=== PATIENT | female | born 1960 | race Caucasian/White ===

== ENCOUNTER 2018-02-05 18:09 | Emergency (ER) | payer SELFPAY ==
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
[2018-02-05 18:39] LABS: HEMATOCRIT 38.2 % (35.0-47.0); MEAN CELL VOLUME 85.5 fl (81-97); MEAN CORPUSCULAR HEMOGLOBIN 26.8 pg (27-33); MEAN CORPUSCULAR HGB CONC 31.4 g/dl (32-36); MEAN PLATELET VOLUME 9.4 fl (7.4-10.4); PLATELET COUNT 252 K/uL (130-400); RED BLOOD COUNT 4.47 M/uL (3.80-5.40); RED CELL DISTRIBUTION WIDTH 13.9 % (11.5-14.5); WHITE BLOOD COUNT W/O DIFF 8.5 K/uL (4.2-12.2)
[2018-02-05 18:50] LABS: BLOOD UREA NITROGEN 14 mg/dL (6-20); CREATININE 0.9 mg/dL (0.5-0.9); EST GLOMERULAR FILTRATION RATE > 60 mL/min; PLATELET ESTIMATE NORMAL (NORMAL); TOTAL PROTEIN 7.4 g/dL (6.6-8.7)
[2018-02-05 18:51] LABS: INR 1.1; PARTIAL THROMBOPLASTIN TIME 27.4 SECONDS (24.5-39.1); PROTHROMBIN TIME (PATIENT) 10.7 SECONDS (9.5-12.1)
[2018-02-05 18:52] LABS: GLUCOSE,RANDOM 127 mg/dL (74-109)
[2018-02-05 18:55] LABS: ALB/GLOB RATIO 1.3 (1.1-1.8); ALBUMIN 4.2 g/dL (4.0-5.0); ALKALINE PHOSPHATASE 180 U/L (35-104); ALT/SGPT 12 U/L (<33); AST/SGOT 19 U/L (10.0-35.0)
--- NOTE | 2018-02-07 14:02 | CT SCAN REPORT ---
EXAM: CT SCAN OF THE CERVICAL SPINE HISTORY: PAIN. TECHNIQUE: Serial axial CT scan of the cervical spine was performed at 2.5 mm intervals from the base of the skull to the thoracic inlet without the use of intravenous contrast. Sagittal and coronal reconstructions are provided. No comparison studies are available. FINDINGS: The vertebral body height, contour, and AP alignment of the cervical spine is within normal limits. Moderate disk space height loss and end plate sclerosis is noted at C5-C6 and C6-C7 disk space levels. There is no CT evidence of a fracture or dislocation of the cervical spine. The prevertebral soft tissue and parapharyngeal fat are unremarkable. The bilateral parotid, submandibular glands, and thyroid gland are unremarkable. There is no CT evidence of cervical lymphadenopathy. The lung windows of the lung apices are clear. The airways are patent. IMPRESSION: DEGENERATIVE DISK DISEASE OF THE CERVICAL SPINE IS NOTED WITHOUT CT EVIDENCE OF AN ACUTE PROCESS INVOLVING THE CERVICAL SPINE. JOB NUMBER: [id number] MTDD
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
== END 2018-02-05 20:47 | disposition home or self-care (01) ==
LOC: ER 18:09
DX: G89.11 Acute pain due to trauma (principal); R07.89 Other chest pain; M54.2 Cervicalgia; R68.84 Jaw pain; M25.512 Pain in left shoulder; M25.552 Pain in left hip; R91.8 Other nonspecific abnormal finding of lung field; V43.52XA Car driver injured in collision with other type car in traffic accident, initial encounter; Z87.891 Personal history of nicotine dependence
CPT/HCPCS: 71260; 72125; 74177; 80053; 85027; 85610; 85730; 93005; 93010; 99283; 99284

== ENCOUNTER 2018-09-17 11:15 | Emergency (ER) | payer OTHER ==
[2018-09-17] MEDS ORDERED: ASPIRIN 81 MG CHEWABLE TABLET PO ONE (11:21)
[2018-09-17 11:33] LABS: ABSOLUTE NEUTROPHIL COUNT 3.04; BASO % 0.8 % (0-6); EOS % 3.4 % (0-6); GRAN % 57.4 % (47-80); HEMATOCRIT 39.3 % (35.0-47.0); HEMOGLOBIN 12.3 gm/dl (11.6-16.0); LYMPH % 30.9 % (16-45); MEAN CELL VOLUME 86.2 fl (81-97); MEAN CORPUSCULAR HGB CONC 31.3 g/dl (32-36); MEAN PLATELET VOLUME 10.3 fl (7.4-10.4); MONO % 7.5 % (0-9); PLATELET COUNT 236 K/uL (130-400); RED BLOOD COUNT 4.56 M/uL (3.80-5.40); RED CELL DISTRIBUTION WIDTH 14.5 % (11.5-14.5); WHITE BLOOD COUNT W/O DIFF 5.3 K/uL (4.2-12.2)
--- NOTE | 2018-09-17 11:34 | Emergency Department Record ---
History of Present Illness - General Chief Complaint: Chest Pain Stated Complaint: CHEST PAIN Time Seen by Provider: 09/17/18 11:20 Source: Patient, EMS, RN notes reviewed - History of Present Illness Initial Comments: chest pressure today at work at 9am for 1 hours and some palpitations. Primary provider Karen Iniguez did an eccho on her heart about one month ago and patient has hypertension and lisinopril was increased to 20 mg per day from 10 mg 5 days ago. 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 No chest pain now and she feelsbetter. Patient presented via ambulance. - Related Data Previous Rx's Medication Instructions Recorded Naproxen [Naprosyn] 500 mg PO BID #20 tablet 09/17/18 Allergies Allergy/AdvReac Type Severity Reaction Status Date / Time No Known Drug Allergies Allergy Unverified 09/10/18 17:03 Review of Systems Reviewed: No additional complaints except as noted below Constitutional: Reports: As per HPI. Denies: Chills, Fever, Malaise, Night sweats, Weakness, Weight change Eyes: Reports: As per HPI. Denies: Eye discharge, Eye pain, Photophobia, Vision change ENT: Reports: As per HPI. Denies: Congestion, Dental pain, Ear pain, Epistaxis, Hearing loss, Throat pain Respiratory: Reports: As per HPI. Denies: Cough, Dyspnea, Hemoptysis, Stridor, Wheezes Cardiovascular: Reports: As per HPI. Denies: Arrhythmia, Chest pain, Dyspnea on exertion, Edema, Murmurs, Orthopnea, Palpitations, Paroxysmal nocturnal dyspnea, Rheumatic Fever, Syncope Endocrine: Reports: As per HPI. Denies: Fatigue, Heat or cold intolerance, Polydipsia, Polyuria Gastrointestinal: Reports: As per HPI. Denies: Abdominal pain, Constipation, Diarrhea, Hematemesis, Hematochezia, Melena, Nausea, Vomiting Genitourinary: Reports: As per HPI. Denies: Abnormal menses, Discharge, Dyspareunia, Dysuria, Frequency, Hematuria, Incontinence, Retention, Urgency Musculoskeletal: Reports: As per HPI. Denies: Arthralgia, Back pain, Gout, Joint swelling, Myalgia, Neck pain Skin: Reports: As per HPI. Denies: Bruising, Change in color, Change in hair/nails, Lesions, Pruritus, Rash Neurological: Reports: As per HPI. Denies: Abnormal gait, Confusion, Headache, Numbness, Paresthesias, Seizure, Tingling, Tremors, Vertigo, Weakness Psychiatric: Reports: As per HPI. Denies: Anxiety, Auditory hallucinations, Depression, Homicidal thoughts, Suicidal thoughts, Visual hallucinations Hematological/Lymphatic: Reports: As per HPI. Denies: Anemia, Blood Clots, Easy bleeding, Easy bruising, Swollen glands Past Medical History - SOCIAL HISTORY Smoking Status: Former smoker Drug Use: None - RESPIRATORY Hx Respiratory Disorders: No - CARDIOVASCULAR Hx Cardio Disorders: No - NEURO Hx Neuro Disorders: No - GI Hx GI Disorders: No - Hx Genitourinary Disorders: No - ENDOCRINE Hx Endocrine Disorders: No - MUSCULOSKELETAL Hx Musculoskeletal Disorders: No - PSYCH Hx Psych Problems: No - HEMATOLOGY/ONCOLOGY Hx Hematology/Oncology Disorders: No Physical Exam - General General Appearance: Alert, Oriented x3, Cooperative, No acute distress - Head Head exam: Normal inspection - Eye Eye exam: Normal appearance, PERRL Pupils: Normal accommodation - ENT ENT exam: Normal exam, Mucous membranes moist, Normal external ear exam, Normal orophraynx, TM's normal bilaterally Ear exam: Normal external inspection. negative: External canal tenderness Nasal Exam: Normal inspection. negative: Discharge, Sinus tenderness Mouth exam: Normal external inspection, Tongue normal Teeth exam: Normal inspection. negative: Dental caries Throat exam: Normal inspection. negative: Tonsillar erythema, Tonsillar exudate - Neck Neck exam: Normal inspection, Full ROM. negative: Tenderness - Respiratory Respiratory exam: Normal lung sounds bilaterally. negative: Respiratory distress - Cardiovascular Cardiovascular Exam: Regular rate, Normal rhythm, Normal heart sounds - GI/Abdominal GI/Abdominal exam: Soft, Normal bowel sounds. negative: Tenderness - Rectal Rectal exam: Deferred - exam: Deferred - Extremities Extremities exam: Normal inspection, Full ROM, Normal capillary refill. negative: Tenderness - Back Back exam: Reports: Normal inspection, Full ROM. Denies: Muscle spasm, Rash noted, Tenderness - Neurological Neurological exam: Alert, Normal gait, Oriented X3, Reflexes normal - Psychiatric Psychiatric exam: Normal affect, Normal mood - Skin Skin exam: Dry, Intact, Normal color, Warm Course - Reevaluation(s) Reevaluation #1: 09/17/18 14:43 both knees contused Reevaluation #2: patient is feeling better adn safe to go home and I recommended she get a stress test in the near future and talk to Karen for setting that up. 09/17/18 14:48 Medical Decision Making - Data Complexity MDM Data: Labs Ordered and/or Reviewed (labs negative, trop times two negative), X-Ray Ordered and/or Reviewed (chest xray no acute findings with 5 mm nodule and repeat CT in 3 months recommended), EKG Ordered and/or Reviewed (nsr, no acute changes) - Lab Data Result diagrams: 09/17/18 10:48 09/17/18 10:48 Disposition Clinical Impression: Chest wall pain Contusion of knee Qualifiers: Encounter type: initial encounter Laterality: unspecified laterality Qualified Code(s): S80.00XA - Contusion of unspecified knee, initial encounter Disposition: Home, Self-Care Condition: (1) Good Instructions: Chest Wall Pain (ED), Contusion in Adults (ED) Additional Instructions: follow up with primary DR in one week Karen Iniguez Prescriptions: Naproxen [Naprosyn] 500 mg PO BID #20 tablet Forms: Patient Portal Access Time of Disposition: 14:48 Quality - Quality Measures Quality Measures: N/A - Blood Pressure Screening Does Patient Have Any of the Following: No, Active Dx of HTN Blood Pressure Classification: Pre-Hypertensive BP Reading Systolic Measurement: 160 Diastolic Measurement: 81 Screening for High Blood Pressure: Patient Exclusion, Hx of HTN [G9744]
[2018-09-17 11:42] LABS: BLOOD UREA NITROGEN 14 mg/dL (8-23); CREATININE 0.9 mg/dL (0.5-0.9); EST GLOMERULAR FILTRATION RATE > 60 mL/min
[2018-09-17 11:45] LABS: GLUCOSE,RANDOM 116 mg/dL (74-109)
[2018-09-17 11:48] LABS: PARTIAL THROMBOPLASTIN TIME 28.2 SECONDS (24.5-39.1)
--- NOTE | 2018-09-19 07:55 | RADIOLOGY REPORT ---
EXAM: CHEST, TWO VIEWS HISTORY: CHEST PAIN. SHORTNESS OF BREATH. TECHNIQUE: Upright PA and lateral views of the chest were obtained. Comparison: Two view chest radiographic examination dated 06/06/18. FINDINGS: The heart is not enlarged. No pulmonary venous hypertension is seen. No definite lung consolidation, costophrenic angle blunting or pneumothorax. There is a subtle nodular opacity projecting at the left mid lung level measuring 5 mm. This was not well seen on the prior radiographic examination though several small noncalcified nodules are noted within the lungs on prior CT examination dated 02/05/18. The lungs and pleural spaces are otherwise clear. No acute osseous abnormality. IMPRESSION: NO RADIOGRAPHIC EVIDENCE OF ACUTE CARDIOPULMONARY DISEASE. 5 MM NODULARITY OPACITY PROJECTING AT THE LEFT MID LUNG LEVEL. THIS WAS NOT WELL SEEN ON THE MOST RECENT PRIOR RADIOGRAPHIC EXAMINATION THOUGH SEVERAL BILATERAL LUNG NODULES ARE DEMONSTRATED ON PRIOR CT EXAMINATION DATED 02/05/18. FOLLOW-UP CT EXAMINATION IS RECOMMENDED TO EXCLUDE MILD INTERVAL CHANGE. JOB NUMBER: [id number] [facility]
== END 2018-09-17 15:27 | disposition home or self-care (01) ==
LOC: ER 11:15
DX: R07.89 Other chest pain (principal); R51 Headache; R91.1 Solitary pulmonary nodule; S80.02XA Contusion of left knee, initial encounter; S80.01XA Contusion of right knee, initial encounter; I10 Essential (primary) hypertension; Z87.891 Personal history of nicotine dependence; W19.XXXA Unspecified fall, initial encounter
CPT/HCPCS: 71046; 80048; 84484; 85025; 85379; 85730; 93005; 93010; 99284

== ENCOUNTER 2018-11-27 14:15 | Emergency (ER) | payer OTHER ==
[2018-11-27] MEDS ORDERED: 0.9 % SODIUM CHLORIDE 1,000 ML BAG IV ONE (14:51)
--- NOTE | 2018-11-27 14:52 | Emergency Department Record ---
History of Present Illness - General Chief complaint: Pain Stated complaint: RT SIDE PAIN Time Seen by Provider: 11/27/18 14:37 Source: Patient Mode of Arrival: Ambulatory Limitations: No limitations - History of Present Illness Initial comments: The patient is here due to a sharp stabbing R flank pain for 3 days. The pain is present with any cough, deep breath or twisting. The patient denies any recent illnesses or trauma or injury. She also has had no fever, sputum production or SOB. MD Complaint: Other Onset/Timin -: Days(s) Location: Right, Other History of Same: No Severity scale (1-10): 8 Quality: Sharp, Stabbing Consistency: Constant, Intermittent Improves with: Nothing Worsens with: Exertion Associated Symptoms: Denies other symptoms - Related Data Previous Rx's Medication Instructions Recorded Doxycycline Monohydrate [Mondoxyne 100 mg PO BID 7 Days #14 capsule 11/27/18 Nl] Naproxen [Naprosyn] 500 mg PO BID #14 tablet. 11/27/18 Allergies Allergy/AdvReac Type Severity Reaction Status Date / Time No Known Drug Allergies Allergy Verified 11/27/18 14:31 Travel Screening - Travel/Exposure Within Last 30 Days Have you traveled within the last 30 days?: No - Travel/Exposure Within Last Year Have you traveled outside the [place] in the last year?: No - Additonal Travel Details Have you been exposed to anyone with a communicable illness?: No - Travel Symptoms Symptom Screening: None Review of Systems Constitutional: Denies: Chills, Fever Eyes: Denies: Eye discharge ENT: Denies: Congestion Respiratory: Denies: Cough, Dyspnea Cardiovascular: Denies: Arrhythmia, Chest pain, Dyspnea on exertion Endocrine: Denies: Fatigue Gastrointestinal: Reports: Abdominal pain. Denies: Nausea Genitourinary: Denies: Dysuria Musculoskeletal: Denies: Arthralgia Neurological: Denies: Abnormal gait Past Medical History - SOCIAL HISTORY Smoking Status: Former smoker Alcohol Use: None Drug Use: None - RESPIRATORY Hx Respiratory Disorders: No - CARDIOVASCULAR Hx Cardio Disorders: Yes Hx Hypertension: Yes - NEURO Hx Neuro Disorders: No - GI Hx GI Disorders: No - Hx Genitourinary Disorders: No - ENDOCRINE Hx Endocrine Disorders: No - MUSCULOSKELETAL Hx Musculoskeletal Disorders: No - PSYCH Hx Psych Problems: No - HEMATOLOGY/ONCOLOGY Hx Hematology/Oncology Disorders: No Family Medical History Any Significant Family History?: Yes Hx Diabetes: Mother Physical Exam - General General Appearance: Alert, Oriented x3, Cooperative, No acute distress - Head Head exam: Atraumatic, Normocephalic, Normal inspection - Eye Eye exam: Normal appearance, PERRL - ENT Throat exam: Normal inspection. negative: Tonsillar erythema, Tonsillar exudate - Neck Neck exam: Normal inspection, Full ROM. negative: Tenderness - Respiratory Respiratory exam: Normal lung sounds bilaterally. negative: Chest wall tenderness (The ribs appear very normal with no bruising or erythema.), Decreased breath sounds, Rales, Respiratory distress, Rhonchi, Stridor - Cardiovascular Cardiovascular Exam: Regular rate, Normal rhythm, Normal heart sounds. negative: Diastolic murmur, Systolic murmur - GI/Abdominal GI/Abdominal exam: Soft, Tenderness (There is reproducible tenderness to palpation over the R upper flank area just under the ribs.). negative: Distended, Rebound, Rigid - Extremities Extremities exam: Normal inspection, Full ROM, Normal capillary refill. negative: Calf tenderness, Pedal edema, Tenderness Course Vital Signs 11/27/18 14:31 Temperature 97.8 F Pulse Rate 82 Respiratory 18 Rate Blood Pressure 152/76 Pulse Ox 97 - Reevaluation(s) Reevaluation #1: The patient is doing better at this time and is resting comfortably. She denies any pain or discomfort at this time. I did discuss the CT results and the fact it appears the patient has a small infiltrate in the RLL. Also due to the slightly worsening nodules and adenopathy the patient is to see her PCP about obtaining a PET scan. The patient understands and will F/U. 11/27/18 17:42 Medical Decision Making - Data Complexity MDM Data: Labs Ordered and/or Reviewed, X-Ray Ordered and/or Reviewed - Lab Data Result diagrams: 11/27/18 14:51 11/27/18 15:10 - Radiology Data Radiology results: Report reviewed (CXR: Neg. Abd CT: RLL small consolidation. Chest CT: Neg for PE. Small infiltrate RLL. Multiple pulmonary nodules, slightly worse than Jan of last year. Mild progressive R hilar adenopathy. Rec. PET scan.) Disposition Disposition: Discharge Clinical Impression: Chest pain, pleuritic Disposition: Home, Self-Care Condition: (2) Stable Instructions: Pleurisy (ED) Additional Instructions: Please take the Naprosyn for pain and please take the Doxycyline as directed. Please see your doctor next week for recheck and to have the formal Chest CT findings evaluated further. Return to the ER for any worsening symptoms. Prescriptions: Doxycycline Monohydrate [Mondoxyne Nl] 100 mg PO BID 7 Days #14 capsule Naproxen [Naprosyn] 500 mg PO BID #14 tablet.dr Forms: Patient Portal Access Time of Disposition: 17:45 Quality - Quality Measures Quality Measures: N/A - Blood Pressure Screening View Details: Yes Does Patient Have Any of the Following: No Blood Pressure Classification: Hypertensive Reading Systolic Measurement: 152 Diastolic Measurement: 76 Screening for High Blood Pressure: < First Hypertensive BP, F/U Documented > [G8950] First Hypertensive Follow-up Interventions: Referral to alternative/primary care provider.
[2018-11-27] MEDS ORDERED: KETOROLAC 30 MG/ML VIAL IVP ONE (15:24)
[2018-11-27 15:35] LABS: ABSOLUTE NEUTROPHIL COUNT 3.96; BASO % 0.8 % (0-6); EOS % 2.1 % (0-6); GRAN % 59.4 % (47-80); HEMOGLOBIN 11.3 gm/dl (11.6-16.0); LYMPH % 30.5 % (16-45); MEAN CELL VOLUME 85.9 fl (81-97); MEAN CORPUSCULAR HGB CONC 31.4 g/dl (32-36); MEAN PLATELET VOLUME 9.9 fl (7.4-10.4); MONO % 7.2 % (0-9); PLATELET COUNT 272 K/uL (130-400); RED BLOOD COUNT 4.19 M/uL (3.80-5.40); RED CELL DISTRIBUTION WIDTH 13.7 % (11.5-14.5); WHITE BLOOD COUNT W/O DIFF 6.7 K/uL (4.2-12.2)
[2018-11-27 15:36] LABS: MEAN CORPUSCULAR HEMOGLOBIN 26.9 pg (27-33)
[2018-11-27 15:46] LABS: BLOOD UREA NITROGEN 11 mg/dL (8-23); CREATININE 0.8 mg/dL (0.5-0.9); EST GLOMERULAR FILTRATION RATE > 60 mL/min; LIPASE 38 U/L (13-60); TOTAL PROTEIN 6.9 g/dL (6.6-8.7)
[2018-11-27 15:48] LABS: GLUCOSE,RANDOM 90 mg/dL (74-109)
[2018-11-27 15:51] LABS: ALBUMIN 3.8 g/dL (4.0-5.0); ALKALINE PHOSPHATASE 155 U/L (35-104); ALT/SGPT 7 U/L (<33); AST/SGOT 12 U/L (10.0-35.0)
[2018-11-27 15:53] LABS: BILIRUBIN,DIRECT < 0.2 mg/dL (0-0.3)
[2018-11-27 15:53] LABS: URINE APPEARANCE CLEAR; URINE BILIRUBIN NEGATIVE (NEGATIVE); URINE BLOOD SMALL (NEGATIVE); URINE COLOR YELLOW; URINE GLUCOSE (UA) NEGATIVE (NEGATIVE); URINE KETONE NEGATIVE (NEGATIVE); URINE LEUKOCYTE ESTERASE NEGATIVE (NEGATIVE); URINE NITRITE NEGATIVE (NEGATIVE); URINE PROTEIN NEGATIVE (NEGATIVE); URINE UROBILINOGEN 0.2 E.U./dL (0.20 - 1.00)
[2018-11-27 16:07] LABS: URINE EPITHELIAL CELLS 0 - 2 (FEW); URINE RBC 0 - 2 (NONE SEEN); URINE WBC NONE SEEN (0-2/hpf)
[2018-11-27 16:08] LABS: URINE BACTERIA NONE SEEN
--- NOTE | 2018-11-28 09:44 | RADIOLOGY REPORT ---
EXAM: CHEST, TWO VIEWS HISTORY: RIGHT SIDED CHEST PAIN WITH MID AXILLARY PAIN, WORSE WHEN TAKING DEEP BREATHS, COUGHS OR SNEEZES. TECHNIQUE: Two views of the chest were obtained. Comparison: Chest x-rays 06/06/18. FINDINGS: The cardiomediastinal silhouette is within normal limits. The trachea is midline. Decrease in respiratory effort is present with persistent mild interstitial markings. No focal consolidation, pneumothorax, or pleural effusions identified. The vertebral body heights and alignment are preserved. Mild scattered bowel gas is noted. No acute displaced right sided rib fracture visualized. IMPRESSION: NO ACUTE CARDIOPULMONARY PROCESS IDENTIFIED. JOB NUMBER: [id number] MTDD
--- NOTE | 2018-11-28 10:02 | CT SCAN REPORT ---
EXAM: CT OF THE ABDOMEN AND PELVIS WITHOUT IV CONTRAST HISTORY: THIS IS A 58-YEAR-OLD FEMALE WITH RIGHT ABDOMINAL PAIN FOR THREE DAYS, HISTORY OF HYPERTENSION. TECHNIQUE: CT of the abdomen and pelvis was conducted without IV contrast with reconstruction of coronal and sagittal planes. Comparison: CT of the abdomen and pelvis with IV contrast 02/05/18. FINDINGS: Small opacities are present involving the posterior base of the right lower lobe. The remainder of the lungs appears clear, mild scattered atelectasis is present. The liver, gallbladder, biliary system, spleen, adrenals, pancreas and kidneys appear within normal limits. No cholelithiasis, biliary ductal dilatation, or inflammatory changes. No hydronephrosis or obstructing calculus. The visualized ureters demonstrate normal course and caliber. The bowel demonstrate normal caliber, no evidence of acute appendicitis or small bowel obstruction. No suspicious bowel wall thickening or inflammatory fat stranding identified. No evidence of acute diverticulitis or significant diverticular disease. The urinary bladder and reproductive organs appear within normal limits, no suspicious mass identified. No pneumoperitoneum or ascites. No overt adenopathy. The aorta appears normal in size, no significant calcified plaque. The abdominal wall is intact. The osseous structures appear intact. There is advanced disk space narrowing present involving L2-L3 with resultant severe disk space narrowing and associated degenerative changes. The remaining vertebral body heights and alignment are preserved. IMPRESSION: 1. SMALL FOCAL POSTERIOR BASILAR RIGHT LOWER LOBE CONSOLIDATION/PNEUMONIA. CONSIDER FOLLOW-UP TO CONFIRM RESOLUTION. 2. NO ACUTE INTRAABDOMINAL PATHOLOGIC PROCESS. THE BILIARY SYSTEM, SYSTEM, AND APPENDIX ARE UNREMARKABLE. NO SUSPICIOUS INFLAMMATORY CHANGES. JOB NUMBER: [id number] [facility]
--- NOTE | 2018-11-28 10:10 | CT ANGIOGRAM REPORT ---
EXAM: CHEST CTA WITH CONTRAST HISTORY: RIGHT FLANK PAIN, ELEVATED D-DIMER, RIGHT SIDED CHEST PAIN, POSSIBLE PE. TECHNIQUE: CTA of the chest was performed following IV contrast administration. Please see the medical record for IV contrast specifics. Post processing on an independent workstation was performed with multiple 3D MIP series obtained. Comparison: Prior chest CT 02/05/18. Chest x-ray 11/27/18. FINDINGS: No definite PE identified. No thoracic aortic aneurysm is identified. No pleural effusion evident. Minor amount of pericardial fluid anteriorly. There is some mild right hilar adenopathy present. Borderline left hilar adenopathy as well as some borderline prominent mediastinal nodes. Prominent sized spleen also noted previously. Multiple pulmonary nodules noted previously also again seen. The majority of these nodules bilaterally appear essentially unchanged in size although some have probably increased slightly. Correlation with prior work-up suggested as these remain indeterminate, not appreciably calcified. Depending on the clinical setting, PET CT may be useful currently. There is some new atelectasis or infiltrate in the right lower lobe. IMPRESSION: 1. NO DEFINITE PE IDENTIFIED. 2. BILATERAL NONCALCIFIED PULMONARY NODULES ALSO NOTED ON 02/05/18. SOME OF THESE APPEAR STABLE AND OTHERS APPEAR SLIGHTLY INCREASED IN SIZE. THERE IS PROBABLY SOME PROGRESSIVE RIGHT HILAR ADENOPATHY WITH BORDERLINE MEDIASTINAL AND LEFT HILAR ADENOPATHY. CORRELATION WITH PRIOR WORK-UP SUGGESTED AND PET CT MAY BE USEFUL. 3. PROBABLE SPLENOMEGALY AGAIN EVIDENT WITH THE SPLEEN INCOMPLETELY INCLUDED ON THIS CHEST CTA. 4. SOME ATELECTASIS OR INFILTRATE IN THE RIGHT LOWER LOBE. JOB [facility]BER: [id number] [facility]
== END 2018-11-27 17:58 | disposition home or self-care (01) ==
LOC: ER 14:15
DX: R07.2 Precordial pain (principal); R10.11 Right upper quadrant pain; R79.89 Other specified abnormal findings of blood chemistry; R91.8 Other nonspecific abnormal finding of lung field; I10 Essential (primary) hypertension; Z87.891 Personal history of nicotine dependence
CPT/HCPCS: 99284 ×2; 96374; 83690; 85025; 80076; 80048; 81001; 85379; 71046; 71275; 74176; Q9967; J1885; J7030

== ENCOUNTER 2019-02-12 11:57 | Day surgery (SDC) | payer OTHER ==
[2019-02-12] MEDS ORDERED: LIDOCAINE 2% MDV (20MG/ML) 20ML VIAL IV ONE (11:58)
[2019-02-12] MEDS ORDERED: PROPOFOL 10 MG/ML VIAL IV ONE (11:58)
--- NOTE | 2019-02-13 12:42 | Operative Note ---
OPERATION: COLONOSCOPY with cold snare polypectomy x2. PREOPERATIVE DIAGNOSIS: Screening, average risk, initial exam. POSTOPERATIVE DIAGNOSIS: Sigmoid polyps x2, status post cold snare polypectomy. PREPARATION QUALITY: Excellent. ESTIMATED BLOOD LOSS: Minimum. COMPLICATIONS: None apparent. SPECIMENS: Sigmoid. PROCEDURE: After informed consent was obtained from the patient, she was placed in the left lateral decubitus position in the endoscopy suite, sedated and monitored by the department of anesthesia. Digital rectal exam was unremarkable. A well-lubricated [id number] colonoscope was inserted into the rectum and advanced to the cecum. Preparation quality was excellent. The cecum, cecal bulb, ileocecal valve, appendiceal orifice, ascending colon, transverse colon, and descending colon were free of inflammatory changes, mass lesions, or polyps. There were 2 sigmoid colon polyps noted. These were sessile and ranged in size from 4-5 mm each removed with a cold snare. Minimal bleeding was noted. The rectum was unremarkable in forward and J-turn views. The endoscope was straightened, the rectal ampulla deflated, and the endoscope was removed. RECOMMENDATIONS: I would suggest the patient resume her medications and diet. She will require repeat exam in 5 years. As always, thank you for allowing me to participate in the healthcare of your patients. MARISSA
== END 2019-02-12 13:12 | disposition home or self-care (01) ==
LOC: HOP 11:57
PROVIDERS: ATTEND Internal Medicine Gastroenterology
DX: Z12.11 Encounter for screening for malignant neoplasm of colon (principal); D12.5 Benign neoplasm of sigmoid colon; I10 Essential (primary) hypertension